=== PATIENT | female | born 1935 | race Caucasian/White ===

== ENCOUNTER → 2017-12-30 | Outpatient (CLI) | payer MEDICARE ==
[2017-12-30 16:45] LABS: Bilirubin, Urine Neg (Neg); Blood, Urine 4+ (Neg); Glucose Qualitative, Urine Neg (Neg); Ketones, Urine Neg (Neg); Leukocyte Esterase, Urine 3+ (Neg); Nitrite, Urine Neg (Neg); Protein, Urine 1+ (Neg); Urobilinogen, Urine NORM (Normal)
[2017-12-30 16:55] LABS: Appearance, Urine Clear (Clear); Color, Urine Yellow (P-Yellow)
[2017-12-30 16:57] LABS: White Blood Cells, Urine 50-100 /hpf (0-5)
[2017-12-30 16:58] LABS: Bacteria Many /hpf; Squamous Epithelial Cells Few /hpf (Few)
== END ==
LOC: LAB SHORT 16:36 → LAB 16:36
PROVIDERS: Nurse Practitioner Family
DX: R82.90 Unspecified abnormal findings in urine (principal)
CPT/HCPCS: 81001; 87077; 87086; 87186

== ENCOUNTER → 2018-11-09 | Outpatient (CLI) | payer MEDICARE ==
[~2018-11-09] MED LIST: ALPR.5 PO; AMLO5 PO; ATOR40TA PO; Amantadine100 M1 PO; ELIQUIS5 MG PO; Ferrous Glucon324 M1 PO; Isosorbide Mono30 MG PO; LISI20 PO; METO50 PO; Pantoprazole So40 MG PO
== END | disposition home or self-care (01) ==
LOC: PLD 08:12 → LAB SHORT 08:12
DX: C44.311 Basal cell carcinoma of skin of nose (principal); C44.319 Basal cell carcinoma of skin of other parts of face
CPT/HCPCS: 88305

== ENCOUNTER → 2018-11-18 | Outpatient (CLI) | payer MEDICARE | END | disposition home or self-care (01) | LOC: LAB SHORT 12:28 → PLD 12:28 | DX: C44.310 Basal cell carcinoma of skin of unspecified parts of face (principal) | CPT/HCPCS: 88305 ==

== ENCOUNTER → 2018-11-25 | Outpatient (CLI) | payer MEDICARE | END | disposition home or self-care (01) | LOC: PLD 08:52 → LAB SHORT 08:52 | DX: C44.319 Basal cell carcinoma of skin of other parts of face (principal) | CPT/HCPCS: 88305 ==

== ENCOUNTER → 2018-12-03 | Outpatient (CLI) | payer MEDICARE | END | disposition home or self-care (01) | LOC: LAB SHORT 14:51 → PLD 14:51 | DX: C44.311 Basal cell carcinoma of skin of nose (principal) | CPT/HCPCS: 88305 ==

== ENCOUNTER 2019-02-18 07:47 | Inpatient (IN) | payer MEDICARE ==
[~2019-02-18] VITALS: Ht 157.5 cm; Wt 83.5 kg
[~2019-02-18 07:47] MED LIST changes: +ALBU90OI6 INH; +Citalopram HBr10 MG PO; +Keflex500 MG PO; +METO25 PO; -METO50 PO; +QUET25 PO
[2019-02-18 08:12] LABS: BASOPHILS ABSOLUTE AUTO 0.03 K/mm3 (0.00-0.23); BASOPHILS PERCENT AUTO 0 % (0-2); EOSINOPHILS ABSOLUTE AUTO 0.04 K/mm3 (0.00-0.68); EOSINOPHILS PERCENT AUTO 1 % (0-6); Hematocrit 31.1 % (33.0-51.0); Hemoglobin 8.9 g/dL (11.5-16.0); IMMATURE GRAN ABSOLUTE AUTO 0.02 K/mm3 (0.00-0.10); IMMATURE GRAN PERCENT AUTO 0 % (0-1); LYMPHOCYTES ABSOLUTE AUTO 2.86 K/mm3 (0.84-5.20); LYMPHOCYTES PERCENT AUTO 38 % (21-46); MONOCYTES ABSOLUTE AUTO 0.43 K/mm3 (0.16-1.47); MONOCYTES PERCENT AUTO 6 % (4-13); Mean Corpuscular HGB Conc 28.6 g/dL (31.5-36.5); Mean Platelet Volume 9.4 fL (9.1-12.4); NEUTROPHILS ABSOLUTE AUTO 4.09 K/mm3 (1.96-9.15); NEUTROPHILS PERCENT AUTO 55 % (41-73); Platelet Count 219 K/mm3 (150-400); RDW Coefficient Variation 16.5 % (11.7-14.2); Red Blood Cell Count 3.56 M/mm3 (3.80-5.20); White Blood Cell Count 7.47 K/mm3 (4.00-11.30)
[2019-02-18 08:14] LABS: Mean Corpuscular Volume 87 fL (80-100)
[2019-02-18 08:25] LABS: Source, Urine Catheter
[2019-02-18 08:33] LABS: International Normalized Ratio 1.47
[2019-02-18 08:34] LABS: Alanine Aminotransfer (ALT/SGP 32 U/L (12-78); Albumin/Globulin Ratio 0.9 (0.8-1.8); Alk Phos 98 U/L (50-136); Anion Gap 16 mmol/L (6-16); Aspartate Aminotrans (AST/SGOT 43 U/L (12-37); Bilirubin, Total 0.6 mg/dL (0.1-1.0); Blood Urea Nitrogen 18 mg/dL (8-24); Bun/Creatinine Ratio 13.8 (12.0-20.0); CO2, Blood 18 mmol/L (21-32); Calcium, Blood 9.6 mg/dL (8.5-10.1); Chloride, Blood 108 mmol/L (98-108); Ethanol (Alcohol), Blood, Med <3 mg/dL; Globulin, Blood 3.3 g/dL (2.2-4.0); Glomerular Filtration Rate 42 (60-); Glucose, Blood 117 mg/dL (70-99); Potassium, Blood 4.6 mmol/L (3.5-5.5); Sodium, Blood 142 mmol/L (136-145); Total Protein, Blood 6.3 g/dL (6.4-8.2)
[2019-02-18 08:38] LABS: Appearance, Urine Hazy (Clear); Bilirubin, Urine Neg (Neg); Blood, Urine 4+ (Neg); Color, Urine Yellow (P-Yellow); Glucose Qualitative, Urine Neg (Neg); Ketones, Urine 1+ (Neg); Leukocyte Esterase, Urine 3+ (Neg); Nitrite, Urine Neg (Neg); Protein, Urine 3+ (Neg); Specific Gravity, Urine 1.015 (1.003-1.022); Urobilinogen, Urine NORM (Normal)
[2019-02-18 08:43] LABS: PO2 Arterial 79.1 mmHg (80-100)
[2019-02-18 08:54] LABS: Troponin I 0.068 ng/mL (0.000-0.040)
[2019-02-18 09:08] LABS: Bacteria Many /hpf; Squamous Epithelial Cells Few /hpf (Few); White Blood Cells, Urine TNTC /hpf (0-5)
[2019-02-18 09:08] LABS: Creatine Kinase MB 5.7 ng/mL (0.0-3.6); Creatine Kinase MB Index 2.2 (0.0-4.0)
[2019-02-18 09:09] LABS: Amorphous Light ({null, 0-Heavy}); Granular Casts 0-2 /lpf ({null, 0})
[2019-02-18] MEDS ORDERED: DONEPEZIL HCL5 M1 PO (12:16)
[2019-02-18] MEDS ORDERED: METO100 PO (12:22)
[2019-02-18] MEDS ORDERED: Aspirin EC81 MG PO (12:29)
--- NOTE | 2019-02-18 12:45 | NUR ---
PATIENT ARRIVED TO ICU ROOM 9 AFTER TELEPHONE REPORT FROM DAE VALERO, ED, AT 1245 VIA STRETCHER, PATIENT MOVED OVER TO BED VIA SLIDER, THE ENTIRE TIME PATIENT WAS MUMBLING INCOHERENT WORDS AND SPEECH, AT TIMES SHE WILL GET BREFLY VERY AGITATED AND THROW BOTH ARMS IN THE AIR, PATIENTS CORE TEMP WAS 94.8 UPON ARRIVAL IN THE ICU, BEAR HUGGER WAS PLACED ON PATIENT AND TEMPERATURE AT THIS TIME IS 98.1, PATIENT IS ON AIRVO NC 43 %, 20L/MIN, WILL BE MOVED TO REGULAR NC ONCE NORMAL TEMPERATURE IS REACHED,PATIENT HAS A FIXED GAZE TO THE UPPER RIGHT, WILL MOVE HEAD, RIGHT PUPIL IS 6 CM AND LEFT PUPIL IS 5 CM, BOTH ARE REACTING SLUGGISH, PATIENT REACTS TO STARTLE REFLEX ONLY WHEN IT COMES DIRECTLY FROM THE FRONT, LUNG SOUNDS ARE DIMINISHED BUT CLEAR, PATIENT IS IN SR/SB, PATIENT IS, BOWEL TONES ARE PRESENT, PATIENT HAS BLAIR CATHER WITH TEMP PROBE IN, DARK YELLOW URINE WITH SEDIMENT DRAINING, PATIENT WAS DIAGNOSED WITH UTI ABOUT 3 DAYS AGO, BRUISES ARE NOTED ON LEFT THIGH, LEFT HIP, LEFT ARM AND ELBOW, ALSO SOME BRUISES ON RIGHT ARM, PATIENT HAS A 206 IN R AC AND A 20 G IN L WRIST, NORMAL SALINE INFUSING VIA R AC PIV, HISTORY AND MED RECONCILIATION WAS OBTAINED FROM FAMILY, SON, [id number], AND , PHONE NUMBERS ON WHITE BOARD, PATIENT IS A DNR PER FAMILY, CALL LIGHT IN REACH, WILL CONTINUE TO MONITOR.
[2019-02-18 15:01] LABS: U Amphetamine Screen Not Detected; U Barbituate Screen Not Detected; U Benzodiazapine Screen DETECTED; U Buprenorphine Screen Not Detected; U Cannabinoids Screen Not Detected; U Cocaine Screen Not Detected; U Methadone Screen Not Detected; U Methamphetamine Screen Not Detected; U Opiates Screen Not Detected; U Oxycodone Screen Not Detected; U Phencyclidine Screen Not Detected; U Propoxyphene Screen Not Detected
--- NOTE | 2019-02-18 15:39 | NUR ---
PATIENT REWARMED TO 99.1, BEAR HUGGER REMOVED, RT CALLED AND AIRVO REPLACED WITH REGULAR NASAL CANNULA ON 3L, WHICH WAS INCREASED TO 4L D/T PATIENT'S DESATURATION INTO UPPER 80'S, PATIENT CONTINUES TO MUMBLE INCOHERENT WORDS AND BECOMES INCREASINGLY AGITATED WHEN APPROACHED, UNABLE TO FOLLOW COMMANDS, CALL LIGHT IN REACH, WILL CONTINUE TO MONITOR.
--- NOTE | 2019-02-18 16:34 | NUR ---
PATIENT VOMITED ABOUT 50CC OF COFFEE GROUND EMESIS, SUCTIONED, DR. HERRERA NOTIFIED, ALSO NOTIFIED ABOUT TEMP NOW 100.9, NEW ORDERS RECEIVED, DR. GOMEZ WAS CALLED FOR GI CONSULT, H&H ORDERED, LAB IN TO DRAW, CALL LIGHT IN REACH, WILL CONTINUE TO MONITOR.
--- NOTE | 2019-02-18 16:59 | NUR ---
PATIENT RECEIVED PROTONIX 40 MG IV ORDERED, AND WAS GIVEN ACETAMINOPHEN SUPPOSITORY 650 MG PER RECTUM, PATIENT TOLERATED POORLY, CALL LIGHT IN REACH, WILL CONTINUE TO MONITOR.
[2019-02-18 17:03] LABS: Hematocrit 26.3 % (33.0-51.0); Hemoglobin 8.1 g/dL (11.5-16.0)
--- NOTE | 2019-02-18 17:34 | NUR ---
SHIFT SUMMARY NOTE: PATIENT REMAINS CONFUSED, CONTINUES TO MUMBLE INCOHERENT WORDS, DOES NOT FOLLOW COMMANDS, BRIEF JERKY MOVEMENTS OBSERVED, PATIENT HAS A CONTINUOUS TREMOR D/T PARKINSONS DISEASE, FAMILY ALSO STATED THAT PATIENT WAS RECENTLY DIAGNOSED WITH EARLY STAGES OF DEMENTIA, PATIENT WAS ALSO DIAGNOSED WITH A UTI ABOUT 3 DAYS AGO, VSS AFTER PATIENT WAS REWARMED, TEMPERATURE ELEVATED AND RECEIVED TYLENOL SUPPOSITORY, PATIENT VOMITED SMALL AMOUNT OF COFFEE GROUND EMESIS, SUCTIONED, ORAL CARE DONE, DR. GOMEZ NOTIFIED FOR GI CONSULT, CALL LIGHT IN REACH, WILL CONTINUE TO MONITOR. MULTIPLE BRUISES OVER LEFT SIDE OF BODY AND SOME BRUISES ON RIGHT SIDE, PICTURES IN CHART, PATIENT TOOK A FALL SOMETIME DURING LAST NIGHT AND FOUND DOWN LYING ON GRAVEL PATH OUTSIDE IN HER NIGHT GOWN, FOR DETAILS SEE SHIFT ASSESSMENT DOCUMENTATION AND NURSES NOTES, CALL LIGHT IN REACH, WILL CONTINUE TO MONITOR AND GIVE REPORT TO ONCOMING SUPERVISOR BOATBUILDERS WOOD.
--- NOTE | 2019-02-18 21:10 | NUR ---
ASSUMED CARE OF PT, REPORT RCV'D FROM DAE ENGLISH. PT ALERT, BUT SEEMS CONFUSED AND FRIGHTENED WITH AN INCREASED STARTLE REFLEX. PT MUMBLES INCOHERENTLY AND FAILS TO FOLLOW BASIC COMMANDS. PT TREMULOUS, WITH HX PARKINSON. PT BRUISED D/T FALL AND USE OF XARELTO, PHOTOS IN CHART. PT DOES NOT GRIMACE WITH PALPATION OF ABDOMEN. DR GOMEZ IN TO SEE PT, EGD SCHEDULED FOR 02/19/19 IN EVENING. PT ON 4L HFNC WITH NS RUNNING @125 ML/HR. CURRENT TEMP 100.4. BLAIR TEMP IN PLACE DRAINING DARK MARIA A URINE. SEE FULL SHIFT ASSESSMENT.
--- NOTE | 2019-02-18 23:36 | NUR ---
PT HAS CONTINUED TO HAVE LARGE AMOUNT OF COFFEE GROUND EMESIS INCREASING HER RISK OF ASPIRATION. NG TUBE PLACED AND HOOKED TO SUCTION. 350 ML BLACK COFFEE GROUND EMESIS OUT ON INSERTION.
[2019-02-19 02:10] LABS: BASOPHILS ABSOLUTE AUTO 0.02 K/mm3 (0.00-0.23); BASOPHILS PERCENT AUTO 0 % (0-2); EOSINOPHILS ABSOLUTE AUTO 0.01 K/mm3 (0.00-0.68); EOSINOPHILS PERCENT AUTO 0 % (0-6); Hematocrit 26.9 % (33.0-51.0); Hemoglobin 8.2 g/dL (11.5-16.0); IMMATURE GRAN ABSOLUTE AUTO 0.03 K/mm3 (0.00-0.10); IMMATURE GRAN PERCENT AUTO 0 % (0-1); LYMPHOCYTES ABSOLUTE AUTO 1.45 K/mm3 (0.84-5.20); LYMPHOCYTES PERCENT AUTO 17 % (21-46); MONOCYTES ABSOLUTE AUTO 0.91 K/mm3 (0.16-1.47); MONOCYTES PERCENT AUTO 11 % (4-13); Mean Corpuscular HGB 24.8 pg (26.0-34.0); Mean Corpuscular HGB Conc 30.5 g/dL (31.5-36.5); Mean Platelet Volume 9.6 fL (9.1-12.4); NEUTROPHILS ABSOLUTE AUTO 6.13 K/mm3 (1.96-9.15); NEUTROPHILS PERCENT AUTO 72 % (41-73); Platelet Count 202 K/mm3 (150-400); RDW Coefficient Variation 16.6 % (11.7-14.2); RDW Standard Deviation 47.6 fL (35.1-46.3); Red Blood Cell Count 3.31 M/mm3 (3.80-5.20); White Blood Cell Count 8.55 K/mm3 (4.00-11.30)
[2019-02-19 02:11] LABS: Bilirubin, Total 0.7 mg/dL (0.1-1.0); Bun/Creatinine Ratio 17.9 (12.0-20.0); Calcium, Blood 8.7 mg/dL (8.5-10.1); Creatinine, Blood 1.12 mg/dL (0.40-1.00); Globulin, Blood 3.1 g/dL (2.2-4.0); Potassium, Blood 4.4 mmol/L (3.5-5.5); Total Protein, Blood 6.1 g/dL (6.4-8.2)
[2019-02-19 02:13] LABS: Mean Corpuscular Volume 81 fL (80-100)
--- NOTE | 2019-02-19 06:17 | NUR ---
SHIFT SUMMARY PT HAS SHOWN IMPROVEMENTS OVER THIS SHIFT. PT IS ABLE TO FOLLOW BASIC COMMANDS (I.E. OPENING MOUTH, SQUEEZE HANDS) PT IS STILL MUMBLING WITH ATTEMPTS TO FORM WORDS. PT WAS ABLE TO SAY "MAY" WHEN RESPONDING TO WHAT MONTH IT IS. PT FEBRILE WITH TMAX 100.4, BP HAS BEEN LABILE, HR 80-90'S. NGT HOOKED TO LIS. 475 ML COFFEE GROUND EMESIS OUT OVER SHIFT. URINE YELLOW WITH SEDIMENT, 350 ML OUT PUT. BLOOD GLUCOSE 69 WITH AM LABS, ORDER PLACED FOR Q6 CBG TO MONITOR WHILE PT IS NPO. PT TO HAVE EGD THIS EVENING PER DR GOMEZ. SEE PREVIOUS SHIFT NOTES AND ASSESSMENTS. WILL REPORT TO DAYSHIFT NURSE.
--- NOTE | 2019-02-19 06:42 | NUR ---
PT'S DAUGHTER IN LAW CALLED AND WAS UPDATED ON PT'S PROGRESS
--- NOTE | 2019-02-19 07:13 | NUR ---
ASSUMED CARE: RECEIVED REPORT FROM NOC RN. PT LYING IN BED EYES OPEN ATTEMPTING TO SPEEK, BUT UNABLE TO UNDERSTAND. NO ACUTE DISTRESS NOTED AT THIS TIME. WILL CONTINUE TO MONITOR AND ASSESS FURTHER.
--- NOTE | 2019-02-19 08:29 | NUR ---
02/19/19 0829 Jessi Sigala History, Chart, Medications and Allergies reviewed before start of procedure. Patient confirms NPO status and agrees with scheduled surgery. PATIENT DETERMINED TO BE ASA APPROPRIATE FOR PROPOFOL SEDATION PRIOR TO START OF PROCEDURE BY DR. GOMEZ. 3-LEAD EKG REVIEWED WITH PHYSICIAN PRIOR TO START OF PROCEDURE. MONITOR INTACT WITH CONTINUOUS PULSE OXIMETRY AND INTERMITTENT BP.
--- NOTE | 2019-02-19 09:46 | NUR ---
FAMILY AT BEDSIDE: UPDATED FAMILY ON PT CURRENTLY CONDITION & PENDING PROCEDURE. RECEIVED COPY OF ADVANCED DIRECTIVE FROM DAUGHTER IN LAW, PLACED IN CHART. PT REMAINS TO APPEAR VERY AGITATED AND POSSIBLY FEARFUL.
--- NOTE | 2019-02-19 10:29 | NUR ---
HALUCINATIONS & INCREASED ANXIETY: WHILE ATTEMPTING TO DRAW BLOOD PT WOULD BECOME EXTREAMLY FEARFUL AT TIMES AND START MUTTERING, SHAKING AND HAS A FEARFULL APEARANCE ON HER FACE. THE DAUGHTER IN LAW AT BEDSIDE APPEARS TO BE ALBE TO UNDERSTAND THE PT A BIT BETTER AND STATES SHE IS SEEING THINGS IN THE ROOM. DR HERRERA CALLED AND NOTIFIED OF PT INCREASE IN ANXIETY AND HALUCINATION, NO NEW ORDERS AT THIS TIME STATES HE WILL BE IN TO SEE PT SOON.
[2019-02-19 10:34] LABS: Hematocrit 26.2 % (33.0-51.0); Hemoglobin 7.8 g/dL (11.5-16.0)
--- NOTE | 2019-02-19 13:07 | NUR ---
DECREASED HGB & BLOOD PRESSURE: CALLED DR HERRERA TO NOTIFY OF HGB OF 7.8 AND DECREASED BLOOD PRESSURE OF 90/60. RECEIVED NEW ORDERS AND TOLD TO CALL DR GOMEZ TO UPDATE. CALL TO DR GOMEZ, CURRENTLY IN PROCEDURES MADE AWARE OF THE SITUATION.
--- NOTE | 2019-02-19 13:44 | NUR ---
BLOOD TRANS: TURNED RATE UP TO 175ML/HR AT THIS TIME.
--- NOTE | 2019-02-19 16:30 | NUR ---
LOW URINE OUTPUT: DR TON HERRERA NOTIFIED OF URINE OUTPUT TOTAL OF 250 NOTED IN BLAIR BAG. ORDERS FOR LABS IN THE MORNING.
--- NOTE | 2019-02-19 17:30 | NUR ---
EGD PROCEDURE: 1630 TEAM YULIANA TO SET UP THE ROOM. DR JASON BRIDGES, TIME OUT IS PERFORMED IN THE ROOM AND SCOPE IS DONE. SCOPE WAS NOTED TO BE OUT AT APPROX 1722. PT RECEIVED 80MG OF PROPOFOL T/O THE PROCEDURE. THIS RN NOTIFIED FAMILY PROCEDURE COMPLETE, AND PT IS RESTING AT THIS TIME. DR WILL CALL TO UPDATE FURTHER.
--- NOTE | 2019-02-19 18:07 | NUR ---
SHIFT SUMMARY: T/O THE DAY PT HAS BEEN VERY AGITATED AND ANXIOUS. IT APPEARD THOUGH PT WAS SEEING THINGS IN THE ROOM THAT WERE NOT SEEN BY OTHERS IN THE ROOM. PT FACIAL EXPRESSION APPEARED TO BE FEARFUL AND PT WOULD BEGIN TO SHAKE UNCONTROLABLY RAISING ARMS AND ATTEMPTING TO SIT UP WHILE MUMBLING INCOHERENTLY. PT WAS PROVIDED WITH ATIVAN PER ORDERS WITH NO CHANGE. PT GIVEN DILAUDID FOR PAIN PER ORDERS, BUT DID NOT APPEAR TO HELP WITH PAIN OR AGITATION. BLOOD SUGARS WERE LOW SO FLUIDS WERE CHANGED TO D5NS AND INCREASED RATE TO 150ML D/T LOW BLOOD PRESSURES. EGD WAS DONE THIS SHIFT, PT APPEARED TO HANDLE WELL NOTED BY HER COOPERATION AND VITAL SIGNS REMAINING STABLE. TEMP APPEARS TO HAVE ELAVATED FURTHER, TYLENOL SUPPOSITORY GIVEN. LOW URINE OUTPUT NOTED THIS SHIFT, MADE AWARE. BED IN LOW POSSITION AND BED ALARM ON.
--- NOTE | 2019-02-19 20:00 | NUR ---
ASSUMED CARE OF PT AT 1900. REPORT RECEIVED PARTIALLY AT BEDSIDE. PT PRESENTS IN BED. DOES HAVE EASY STARTLE WITH APPROACH. PT DOES MAKE EYE CONTACT. SPEECH VERY DIFFICULT TO UNDERSTAND. PT TOLERATED TURN IN BED. AFTERWARDS, WAS ABLE TO UNDERSTAND PT THANKING RN FOR REPOSITIONING. WILL REVIEW CHART AND PLAN OF CARE FOR THIS PT.
--- NOTE | 2019-02-19 22:36 | NUR ---
PMC CARE DONE FOR PT. MUCH REASSURANCE GIVEN AND CARE TAKEN. PROFESSOR OF VIOLIN SCAR DOES CATHETER CARE AND HAS DONE ORAL CARE. PT BECOMES VERY RESISTANT AND PROFESSOR OF VIOLIN NEEDS RN TO ASSIST TO KEEP PT FROM SCRATCHING OR SLAPPING HER. PT CALMS QUICKLY AFTER CARE PERFORMED. REMAINS WITH VERY DIFFICULT TO UNDERSTAND SPEECH PATTERN. USE OF BED ALARM FOR PT SAFETY. PROVIDED PERSONAL FAN FOR LOW GRADE FEVER. WILL CONTINUE TO MONITOR PT, AND REASSURE HER MUCH NEEDED. IS A MOUTH BREATHER. HAVE BREANA NASAL CANNULA TO HER MOUTH AND HAVE BEEN ABLE TO TITRATE DOWN O2 TO 4 L/M. WILL CONTINUE TO MONITOR AND REEVALUATE IF ABLE TO TITRATE LOWER.
[2019-02-20 03:41] LABS: BASOPHILS ABSOLUTE AUTO 0.02 K/mm3 (0.00-0.23); BASOPHILS PERCENT AUTO 0 % (0-2); EOSINOPHILS ABSOLUTE AUTO 0.01 K/mm3 (0.00-0.68); EOSINOPHILS PERCENT AUTO 0 % (0-6); Hemoglobin 9.1 g/dL (11.5-16.0); IMMATURE GRAN ABSOLUTE AUTO 0.02 K/mm3 (0.00-0.10); IMMATURE GRAN PERCENT AUTO 0 % (0-1); LYMPHOCYTES ABSOLUTE AUTO 1.29 K/mm3 (0.84-5.20); LYMPHOCYTES PERCENT AUTO 17 % (21-46); MONOCYTES ABSOLUTE AUTO 0.94 K/mm3 (0.16-1.47); MONOCYTES PERCENT AUTO 13 % (4-13); Mean Corpuscular HGB 26.6 pg (26.0-34.0); Mean Corpuscular HGB Conc 31.4 g/dL (31.5-36.5); Mean Corpuscular Volume 85 fL (80-100); Mean Platelet Volume 9.1 fL (9.1-12.4); NEUTROPHILS ABSOLUTE AUTO 5.12 K/mm3 (1.96-9.15); NEUTROPHILS PERCENT AUTO 69 % (41-73); NRBC ABSOLUTE 0.04 K/mm3 (0.00-0.02); NRBC Auto 0.5 /100 WBC (0.0-0.2); Platelet Count 166 K/mm3 (150-400); RDW Standard Deviation 51.1 fL (35.1-46.3); Red Blood Cell Count 3.42 M/mm3 (3.80-5.20)
[2019-02-20 03:58] LABS: Albumin, Blood 3.1 g/dL (3.4-5.0); Bilirubin, Total 0.8 mg/dL (0.1-1.0); Calcium, Blood 8.2 mg/dL (8.5-10.1); Creatinine, Blood 0.95 mg/dL (0.40-1.00); Globulin, Blood 3.1 g/dL (2.2-4.0); Potassium, Blood 3.9 mmol/L (3.5-5.5); Total Protein, Blood 6.2 g/dL (6.4-8.2)
--- NOTE | 2019-02-20 06:00 | NUR ---
PT HAS BEEN ABLE TO SLEEP SOME THIS NIGHT. WHEN OBSERVED, PT STARTLES FROM SLEEP, AND IT TAKES A BIT FOR HER TO FALL ASLEEP. SHE THEN REPEATS THE STARTLE AND AWAKENS AGAIN. PT HAS BEEN CALM WITH MOST OF CARE THIS NIGHT. NEEDS SOOTHING REASSURANCE. CONTINUES ON 3 LITERS OXYGEN PER NASAL CANNULA. MAINTAINS SATURATIONS GREATER THAN 90 PERCENT. WILL CONTINUE TO MONITOR PT, AND WILL REPORT OFF TO ONCOMING RN.
--- NOTE | 2019-02-20 08:00 | NUR ---
ASSUMED CARE: RECEIVED REPORT FROM NOC RN. PT APPEARS TO BE SLEEPING UPON ENTERING THE ROOM NOTED BY EYES CLOSED, EVEN RISE AND FALL OF CHEST NOTED. VITALS APPEAR TO BE STABLE AND NO DISTRESS NOTED AT THIS TIME. WILL CONTINUE TO MONITOR AND ASSESS FURTHER.
--- NOTE | 2019-02-20 10:30 | NUR ---
MENTATION: PT APPEARS TO BE ABLE TO ANSWER YES OR NO QUESTION AND IS ABLE TO GET OUT ONE WORD AT A TIME, BUT IS VERY DIFFICULT TO UNDERSTAND STILL. ANXIETY APPEARS TO BE MUCH LESS THAN THE PREVIOUS DAY. REORIENTED PT TO HOSPITAL AND APPEARS TO HAVE UNDERSTANDING. FAMILY IN TO SEE PT AND IS TALKING WITH THE [id number] WHO APPEARS TO BE ABLE TO UNDERSTAND THE PT MUCH BETTER THAN ANYONE ELSE. SPEECH THERAPY CAME TO EVALUATE PT AND OK'D PT FOR PUREED FOOD AND THIN LIQUIDS. PT ABLE TO TAKE EXTENDED RELEASE MEDS WHOLE AND DISCUSSED WITH ST ABOUT CHANGING ALL ORAL MED ADMINISTRATION WHOLE IN APPLESAUCE. WILL CONTINUE TO MONITOR.
--- NOTE | 2019-02-20 13:20 | NUR ---
RECEIVED REPORT FROM KELSEA GRADER TENDER, AND WILL ASSUME CARE OF PT WHEN TRANSFERRED TO PCU ROOM 3.
--- NOTE | 2019-02-20 13:23 | NUR ---
TRANSFER TO PCU 3: REPORT GIVEN TO MARKETING REPORTING ANALYST. MARKETING REPORTING ANALYST TO ICU ROOM TO ASSIST IN TRANSFER.
--- NOTE | 2019-02-20 13:30 | NUR ---
RECEIVED PT FROM ICU 9 INTO PCU 3.
--- NOTE | 2019-02-20 15:54 | NUR ---
NURSING SUMMARY ALERT, CONFUSED, GARBLED SPEECH, TREMORS/PARKINSONS, FOLLOWS COMMANDS MOST OF THE TIME. SR - ST WITH FREQUENT PAC'S, BBB, AND ABBERANT BEATS, HR 95 - 117. VSS. LUNGS WITH UPPER AIRWAY EXPIRATORY WHEEZING, C/O SOB, 4L O2 NC, SATS REMAINING 92-96%, RESPIRATORY TREATMENTS. BOWEL SOUNDS HYPOACTIVE, DENIES NAUSEA. DR. GOMEZ CAME TO SEE PT. NEW ORDER FOR PRILOSEC AND DC REGLAN. PT IS NOT ON BLOOD THINNERS DUE TO MICRO BLEEDS PER EGD RESULTS. D5 1/2 NS INFUSING AT 125 ML/HR, DUE TO POOR APPETITE AND BLOOD SUGARS TRENDING LOW. ON PUREE DIET, REQUIRES FEEDING ASSISTANCE, DYSPHAGIA PRECAUTIONS. BLAIR IN PLACE WITH YELLOW URINE A LOT OF DARK SPECS OF SEDIMENT. DR. HERRERA AWARE AND NEW ORDER FOR LASIX IV (GIVEN BY KELSEA, TOOLING MECHANIC) PRIOR TO ARRIVAL IN PCU AND TO CALL DR. HERRERA AT 1700 WITH URINE OUTPUT AMOUNT. LAST BM 02/17, BOWEL CARE. SKIN WITH SCATTERED BRUISING THROUGHOUT BODY, PICTURES IN CHART, REPOSITIONING EVERY TWO HOURS. SCD'S, PT/OT AND SPEECH THERAPY CONSULTED. RAC 20G AND LEFT WRIST IV SITE.
--- NOTE | 2019-02-20 17:01 | NUR ---
REPORT RECEIVED FROM MANOLO PEARL.
--- NOTE | 2019-02-20 18:30 | NUR ---
SHIFT SUMMARY PT ALERT TO SELF, PLACE AND SITUATION. PT DIFFICULT TO UNDERSTAND DUE TO GARBLED SPEECH. DYSPHAGIA PRECAUTIONS IN PLACE. VS STABLE. 02 SATS REMAIN ABOVE 90% ON 5L NC. BLAIR PATENT AND DRAINING DARK YELLOW URINE. PT TOLERATING PUREE DIET. PT BEING REPOSITIONED Q2H. WILL CONTINUE TO MONITOR AND REPORT TO ONCOMING RN.
--- NOTE | 2019-02-20 23:14 | NUR ---
PT STATES SEEING ANTS ALL OVER HER DRINK. ASKS NURSE TO GET ANOTHER WATER CUP. THIS NURSE BRINGS THIS PT ANOTHER ICE WATER. PT STATES THAT SHE WON'T DRINK IT BECAUSE THERE ARE ANTS INSIDE OF IT. THIS NURSE ATTEMPTED TO REORIENT PT TO SITUATION AND SHOW HER THAT THERE WERE NO ANTS. PT REPLIES "MY ALWAYS SAYS I AM HALLUCOINATING WHEN I SEE THE ANTS BUT IO SEE THEM". PT ASKS TO KEEP LIGHT ON IN ROOM. LIGHTS LEFT ON. WATER LEFT AT BEDSIDE TABLE IN REACH OF PT. CALL LIGHT IN PATIENT'S HAND.
[2019-02-21 04:18] LABS: BASOPHILS ABSOLUTE AUTO 0.03 K/mm3 (0.00-0.23); BASOPHILS PERCENT AUTO 0 % (0-2); EOSINOPHILS ABSOLUTE AUTO 0.12 K/mm3 (0.00-0.68); EOSINOPHILS PERCENT AUTO 1 % (0-6); Hemoglobin 9.1 g/dL (11.5-16.0); IMMATURE GRAN ABSOLUTE AUTO 0.04 K/mm3 (0.00-0.10); IMMATURE GRAN PERCENT AUTO 1 % (0-1); LYMPHOCYTES ABSOLUTE AUTO 1.12 K/mm3 (0.84-5.20); LYMPHOCYTES PERCENT AUTO 13 % (21-46); MONOCYTES ABSOLUTE AUTO 0.89 K/mm3 (0.16-1.47); MONOCYTES PERCENT AUTO 10 % (4-13); Mean Corpuscular HGB 26.2 pg (26.0-34.0); Mean Corpuscular HGB Conc 30.3 g/dL (31.5-36.5); Mean Corpuscular Volume 87 fL (80-100); Mean Platelet Volume 9.6 fL (9.1-12.4); NEUTROPHILS ABSOLUTE AUTO 6.65 K/mm3 (1.96-9.15); NEUTROPHILS PERCENT AUTO 75 % (41-73); NRBC ABSOLUTE 0.03 K/mm3 (0.00-0.02); NRBC Auto 0.3 /100 WBC (0.0-0.2); Platelet Count 163 K/mm3 (150-400); RDW Coefficient Variation 17.6 % (11.7-14.2); RDW Standard Deviation 53.7 fL (35.1-46.3); Red Blood Cell Count 3.47 M/mm3 (3.80-5.20); White Blood Cell Count 8.85 K/mm3 (4.00-11.30)
[2019-02-21 04:33] LABS: International Normalized Ratio 1.27; Prothrombin Time Results 13.2 Sec (9.7-11.5)
[2019-02-21 04:38] LABS: Alanine Aminotransfer (ALT/SGP 209 U/L (12-78); Albumin, Blood 2.9 g/dL (3.4-5.0); Albumin/Globulin Ratio 0.9 (0.8-1.8); Alk Phos 86 U/L (50-136); Anion Gap 8 mmol/L (6-16); Aspartate Aminotrans (AST/SGOT 216 U/L (12-37); Bilirubin, Total 0.6 mg/dL (0.1-1.0); Blood Urea Nitrogen 17 mg/dL (8-24); Bun/Creatinine Ratio 19.7 (12.0-20.0); CO2, Blood 24 mmol/L (21-32); Calcium, Blood 8.4 mg/dL (8.5-10.1); Chloride, Blood 117 mmol/L (98-108); Creatinine, Blood 0.87 mg/dL (0.40-1.00); Globulin, Blood 3.2 g/dL (2.2-4.0); Glomerular Filtration Rate >60 (60-); Glucose, Blood 92 mg/dL (70-99); Potassium, Blood 3.6 mmol/L (3.5-5.5); Sodium, Blood 149 mmol/L (136-145); Total Protein, Blood 6.1 g/dL (6.4-8.2)
--- NOTE | 2019-02-21 04:40 | NUR ---
END OF SHIFT SUMMARY ASSUMED CARE OF PT @1900. PT AXO,. TALKING WITH STAFF APPROPRIATELY. PT STATES OCCASIONAL LIGHT HEADEDNESS WITH AMBULATION BUT THIS HAS RESIDED. NO ACUTE CHANGES EXPERIENCED THIS SHIFT AT THIS TIME. PT HAS APPEARED TO SLEEP FOR MAJORITY OF SHIFT. PT STATES THAT THE PHENERGAN/CODEINE AND CEPACOL LOZENGES GIVEN AT THE BEGINNIG OF SHIFT HAVE BEEN THE MOST IMPACTFUL MEASURES TAKEN TO RELIEVWE HIS CHEST/ABDOMEN PAIN. STATES THAT THE MORPHINE GIVEN EARLIER DURING DAY SHIFT DID NOTHING FOR HIS PAIN AND JUST "KNOCKED HIM OUT". THIS WILL BE PASSED ON TO ONCOMING NURSE FOR PAIN MANAGEMENT. CALL LIGHT HAS BEE WITHIN REACH. BED IN LOWEST POSITION. WILL CONTINUE TO MONITOR PT UNTIL SHIFT CHANGE.
--- NOTE | 2019-02-21 04:46 | NUR ---
ND OF SHIFT SUMMARY. ASSUMED CARE OF PT @1900. NO ACUTE CHANGES THIS SHIFT. VSS. HGB HAS REMAINED AT 9.1. CBG HAS REMAINED STABLE. BLAIR HAS SHOWN LITTLE VOLUME OUTPUT. PT HAS BEEN UP TO BS AND WAS SUCCESFUL WITH 2 SMALL HARD BM'S. PT FOUND TO CURRENTLY BE IN AFIB WITH OCCASIONAL P WAVES. RATE HAS REMAINED STABLE STAYING AROUND THE 110'S. PT HAS REMAINED ON 5L NC. PT HAS HAD PERIODS OF ICREASED CONFUSION, TALKING TO HERSELF, HAVING DELUSIONS OF ANTS/COCKROACHES CRAWLING AROUND, AND PARANOID THAT THIS NURSE HAS TAINTED HER DRINK WITH THE ANTS. AT OTHER TIMES, PT IS VERY COOPERATIVE AND MAKES NO COMMENTS REGARDING THESE DELUSIONS. "EGG CRATE" PADDING PLACED UNDERNEATH BED SHEET R/T MULTIPLE RED SPOTS/BRUISES FOUND POSTERIORLY AND SCATTERED T/O PT'S SKIN. MEPILEX ON COCCYX AND MID BACK REDDENED AREAS THAT APPEAR TO BE AT HIGHER RISK FOR BREAKDOWN. PT HAS BEEN REPOSITIONED MULTIPLE TIMES THIS SHIFT. CALL LIGHT WITHIN REACH, PT HAS USED IT A FEW TIMES THIS SHIFT. BED IN LOWEST POSITION WITH BED ALARM SET. WILL CONTINUE TO MONITOR PT UNTIL SHIFT CHANGE.
--- NOTE | 2019-02-21 17:49 | NUR ---
SHIFT SUMMARY PT ALERT TO SELF, SITUATION AND FAMILY. PT HAVING MOMENTS OF LUCIDITY AND MOMENTS OF CONFUSION WITH PARANOIA AND HALLUCINATIONS. VS HAVE BEEN STABLE. HR IS 110-120'S AFIB. BLAIR CATHETER PATENT AND DRAINING. PT DENIES ANY PAIN. FAMILY IN TO SEE PT. PT ABLE TO WORK WITH PHYSICAL THERAPY TODAY AND TRANSFER TO CHAIR. WILL CONTINUE TO MONITOR CLOSELY AND REPORT TO ONCOMING RN. CALL LIGHT IN REACH.
--- NOTE | 2019-02-22 00:52 | NUR ---
PT'S REFUSAL OF CARE PT HAS REFUSED SCD'S THIS SHIFT, HER PARKSINSONS MEDICATION, AND CURRENTLY 0000 BP WITH VITALS. THESE REFUSALS EACH FOLLOW EXTENSIVE EDUCATION FROM THIS NURSE. PT INITALLY WOULDN'T TAKE ANY OF HER 2100 MEDICATIONS. PT EVENTUALLY OBLIGED TO TAKE THEM BUT THEN PROCEEDED TO SPIT HER SYMMETREL. PT HAS BEEN EXTREMELY PARANOID OF STAFF THIS SHIFT AND HAS BEEN SOMEWHAT COMBATIVE WITH SPEECH AND MOVEMENTS.
--- NOTE | 2019-02-22 05:48 | NUR ---
END OF SHIFT SUMMARY ASSUMED CARE OF PT @1900. PT PRESENTS CONFUSED. DAUGHTER HAD JUST LEFT. PT HALLUCINATING, SEEING ANTS AND RELATIVES THAT ARE NOT IN THE ROOM. SEE NOTE REGARDING REFUALS. PT DID TAKE MELATONIN AND WAS ABLE TO GET A FEW HOURS ASLEEP. THIS AM, PT APPEARS MORE ALERT THAN BEGINNING OF SHIFT, MUCH MORE COOPERATIVE AND LESS PARNOID. VSS T/O SHIFT. PT CONTIONUES TO HAVE VERY LITTLE URINE OUTPUT INTO BLAIR. PT ALSO HAS HAD VERY LITTLE ORAL INTAKE, A FEW SIPS OF WATER T/O NIGHT. PT REPOSITIONED MULTIPLE TIMES THIS SHIFT. WILL CONTINUE TO MONITOR PT UNTIL SHIFT CHANGE.
[2019-02-22 05:57] LABS: Albumin, Blood 2.8 g/dL (3.4-5.0); Albumin/Globulin Ratio 0.8 (0.8-1.8); Bilirubin, Total 0.9 mg/dL (0.1-1.0); Bun/Creatinine Ratio 19.2 (12.0-20.0); Calcium, Blood 8.6 mg/dL (8.5-10.1); Creatinine, Blood 1.25 mg/dL (0.40-1.00); Globulin, Blood 3.3 g/dL (2.2-4.0); Potassium, Blood 4.1 mmol/L (3.5-5.5); Total Protein, Blood 6.1 g/dL (6.4-8.2)
--- NOTE | 2019-02-22 09:00 | NUR ---
DR MONCADA HERE TO SEE PT. DISCUSSED PT'S STATUS. BED ALARM IN PLACE.
--- NOTE | 2019-02-22 10:50 | NUR ---
PT RECENTLY HAD BATH WITH ASSIST FROM FEMALE CIRCUS TRAINER'S. PT MED WHILE SITTING ON SIDE OF BED WITHOUT DIFFICULTY. THERAPY IN WORKING WITH PT. FAMILY PRESENT.
--- NOTE | 2019-02-22 13:33 | NUR ---
PT DRINKING WATER MUCH BETTER TODAY. PT ALMOST DRANK FULL WATER BOTTLE AND SOME OF ENSURE. PT FAMILY/FRIENDS IN ROOM.
--- NOTE | 2019-02-22 19:25 | NUR ---
SHIFT SUMMARY PT CONT TO BE CONFUSED AT TIMES. PT BEEN ASSISTED WITH ADL'S PRN. PT BEEN REPOSITIONED MULT TIMES TODAY. PT HAS FOAM PAD ON BED. PT WORKED WITH THERAPY EARLIER THIS AM. PT HAS HAD MULT FAMILY/FRIENDS IN/OUT OF ROOM. ALARM IN PLACE. PT DRINKING FLUIDS TODAY WITH ENCOURAGEMENT.
[2019-02-23 04:09] LABS: BASOPHILS ABSOLUTE AUTO 0.02 K/mm3 (0.00-0.23); BASOPHILS PERCENT AUTO 0 % (0-2); EOSINOPHILS ABSOLUTE AUTO 0.07 K/mm3 (0.00-0.68); EOSINOPHILS PERCENT AUTO 1 % (0-6); Hematocrit 29.3 % (33.0-51.0); Hemoglobin 8.8 g/dL (11.5-16.0); IMMATURE GRAN ABSOLUTE AUTO 0.05 K/mm3 (0.00-0.10); IMMATURE GRAN PERCENT AUTO 1 % (0-1); LYMPHOCYTES ABSOLUTE AUTO 1.46 K/mm3 (0.84-5.20); LYMPHOCYTES PERCENT AUTO 18 % (21-46); MONOCYTES PERCENT AUTO 14 % (4-13); Mean Corpuscular HGB 25.8 pg (26.0-34.0); Mean Corpuscular Volume 86 fL (80-100); Mean Platelet Volume 10.6 fL (9.1-12.4); NEUTROPHILS ABSOLUTE AUTO 5.29 K/mm3 (1.96-9.15); NEUTROPHILS PERCENT AUTO 66 % (41-73); NRBC ABSOLUTE 0.15 K/mm3 (0.00-0.02); NRBC Auto 1.9 /100 WBC (0.0-0.2); Platelet Count 122 K/mm3 (150-400); RDW Coefficient Variation 19.1 % (11.7-14.2); RDW Standard Deviation 56.9 fL (35.1-46.3); Red Blood Cell Count 3.41 M/mm3 (3.80-5.20); White Blood Cell Count 7.99 K/mm3 (4.00-11.30)
[2019-02-23 04:47] LABS: Albumin, Blood 2.7 g/dL (3.4-5.0); Albumin/Globulin Ratio 0.8 (0.8-1.8); Bilirubin, Total 0.7 mg/dL (0.1-1.0); Bun/Creatinine Ratio 21.1 (12.0-20.0); Calcium, Blood 8.8 mg/dL (8.5-10.1); Creatinine, Blood 1.8 mg/dL (0.40-1.00); Globulin, Blood 3.2 g/dL (2.2-4.0); Potassium, Blood 4.3 mmol/L (3.5-5.5); Total Protein, Blood 5.9 g/dL (6.4-8.2)
--- NOTE | 2019-02-23 07:35 | NUR ---
AM ASSESSMENT: Pt laying in bed. LS with exp wheezing in upper lobes. BT positive. Pulses palp. HR irregular, tele shows controlled afib. Pt denies pain. Oriented to self, place, family, surroundings and situation. 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 Pt does not seem to be having some tremors that are chronic. VSS, blood pressure slightly low. UO very low. Physician aware and new orders were obtained by david RN. Will continue to monitor.
--- NOTE | 2019-02-23 07:44 | NUR ---
PHYSICIAN NOTIFIED DR MONCADA CALLED REGARDING PATIENTS I/O'S. TOLD PATIENT HAS BEEN DRINKING VERY LITTLE LIQUIDS AND HAS CONTINUED WITH LOW OUTPUTS FROM BLAIR. THIS NOC SHIFT PT HAD A 100ML URINE OUTPUT. PREV DAY SHIFT HAD ABOUT 400MLS. STATES HE HAS BEEN AWARE OF THE PATIENTS "DRYNESS". STATES IS PLANNING TO TALK TO THE FAMILY REGARDING HOSPICE BUT DOES PLACE AN ORDER FOR FLUIDS. 500 NS BOLUS FOLLOWED BY CONTINUOUS D5 1/2 NS 20MEQ @100MLS/HR UNTIL HE ARRIVES TO MAKE FURTHER CHANGES.
--- NOTE | 2019-02-23 08:03 | NUR ---
END OF SHIFT SUMMARY PT APPEARED TO HAVE SLEP FOR MAJORITY OF SHIFT POST MELATONIN. NO ACUE CHANGES NOTED. VSS. MAIN COCERN IS PT'S I&O. SEE NOTE REGARDING CALL TO DR MONCADA. TO SEE PT THIS AM AND DISCUSS NEXT ROUTE OF CARE WITH PT'S FAMILY. PT HAS BEEN TURNED MULTIPLE TIMES THIS SHIFT. HAS SIPPED SMALL AMOUNT OF WATER. PT APPEARS LESS CONFUSED THIS SHIFT. REPORT GIVEN TO ONCOMING NURSE.
--- NOTE | 2019-02-23 18:36 | NUR ---
shift summary: Pt resting in bed at this time. Has had very poor UO this shift. Physician aware and new orders were obtained. PT BP was also low this afternoon and physician aware. Pt has been oriented and very cooperative throughout the shift. She was able to get up to chair with OT then back to bed with PT. Pt is a max assist. PT/OT will continue to work with Pt. No other changes this shift. Will report to night RN>
[2019-02-24 05:29] LABS: BASOPHILS ABSOLUTE AUTO 0.02 K/mm3 (0.00-0.23); BASOPHILS PERCENT AUTO 0 % (0-2); EOSINOPHILS ABSOLUTE AUTO 0.06 K/mm3 (0.00-0.68); EOSINOPHILS PERCENT AUTO 1 % (0-6); Hemoglobin 9.5 g/dL (11.5-16.0); IMMATURE GRAN ABSOLUTE AUTO 0.05 K/mm3 (0.00-0.10); IMMATURE GRAN PERCENT AUTO 1 % (0-1); LYMPHOCYTES ABSOLUTE AUTO 1.07 K/mm3 (0.84-5.20); LYMPHOCYTES PERCENT AUTO 13 % (21-46); MONOCYTES ABSOLUTE AUTO 1.04 K/mm3 (0.16-1.47); MONOCYTES PERCENT AUTO 12 % (4-13); Mean Corpuscular HGB 26.7 pg (26.0-34.0); Mean Corpuscular HGB Conc 30.6 g/dL (31.5-36.5); Mean Corpuscular Volume 87 fL (80-100); NEUTROPHILS ABSOLUTE AUTO 6.25 K/mm3 (1.96-9.15); NEUTROPHILS PERCENT AUTO 74 % (41-73); NRBC ABSOLUTE 0.14 K/mm3 (0.00-0.02); NRBC Auto 1.6 /100 WBC (0.0-0.2); Platelet Count 96 K/mm3 (150-400); RDW Coefficient Variation 19.6 % (11.7-14.2); RDW Standard Deviation 60.9 fL (35.1-46.3); Red Blood Cell Count 3.56 M/mm3 (3.80-5.20); White Blood Cell Count 8.49 K/mm3 (4.00-11.30)
[2019-02-24 05:45] LABS: Albumin, Blood 2.7 g/dL (3.4-5.0); Albumin/Globulin Ratio 0.8 (0.8-1.8); Bilirubin, Total 0.8 mg/dL (0.1-1.0); Bun/Creatinine Ratio 28.6 (12.0-20.0); Calcium, Blood 8.7 mg/dL (8.5-10.1); Creatinine, Blood 1.68 mg/dL (0.40-1.00); Globulin, Blood 3.4 g/dL (2.2-4.0); Potassium, Blood 4.6 mmol/L (3.5-5.5); Total Protein, Blood 6.1 g/dL (6.4-8.2)
--- NOTE | 2019-02-24 06:35 | NUR ---
a+o, no dilusions or confusion noted during shift, call light in reach, iv infusing, 2.5 via nc, took medication one pill at a time with OJ, will continue to monitor and treat until sbar report povided to day shift.
--- NOTE | 2019-02-24 09:10 | NUR ---
AM ASSESSMENT: Pt resting in bed. VSS. Dr. Zapata in room visiting Pt. Pt is A/O at this time. No hallucinations or dilusions. Answers questions appropriatly. LS with wheezing, HR irregular. Tele shows A-Fib in the 80's. BT positive. Piña cath draining yellow urine that is dark with some sediment in it. Pt and Dr. Zapata discussing treatment plans. Possible plan for discharge with hospice. Pt seems open to this idea. Call light in reach. Will continue to monitor.
[2019-02-24 12:19] LABS: Antinuclear Antibody Screen Negative (Negative)
--- NOTE | 2019-02-24 19:47 | NUR ---
SHIFT SUMMARY: Pt resting in bed. Pt has been A/O throughout the shift. VSS. Pt has had some wheezing. BIox has reamined >90% on 3L nc. HR has been in afib in the 80's. UO has imporved and Pt drained >300ml from her beckman cath this shift. Urine is still very dark with sediment. +2 Edema has remained in BLE. Pt was able to get up with 2 person max assist to BSC and have a BM this shift. No other changes. Pt and her family are leaning toward pt being discharged to hospice care. Pt seems slightly down, but at peace with this decision. Report was given to night rn. No other changes.
--- NOTE | 2019-02-25 00:55 | NUR ---
Assumed care of pt at approx 1905. VSS. Pt alert and oriented, slow to respond and difficult to understand with some grumbled speech. Pt answer questions appropriately. Pt breathing shallow and slightly tachypneic at 21 with complaint "I cannot breathe". This RN at bedside frequently with Pt to ensure o2 saturation and pt safety. O2 Saturation remain stable at 95% on 3L NC, suction provided PRN per pt request. Pt states she no longer feels SOB and is currently resting in bed. Q2 turn, tolerates well. Mepilex in place on coccyx. See shift assessment for detailed assessment. Will continue to closely monitor.
[2019-02-25 04:23] LABS: BASOPHILS ABSOLUTE AUTO 0.03 K/mm3 (0.00-0.23); BASOPHILS PERCENT AUTO 0 % (0-2); EOSINOPHILS ABSOLUTE AUTO 0.09 K/mm3 (0.00-0.68); EOSINOPHILS PERCENT AUTO 1 % (0-6); Hematocrit 32.4 % (33.0-51.0); Hemoglobin 9.8 g/dL (11.5-16.0); IMMATURE GRAN PERCENT AUTO 1 % (0-1); LYMPHOCYTES ABSOLUTE AUTO 1.27 K/mm3 (0.84-5.20); LYMPHOCYTES PERCENT AUTO 14 % (21-46); MONOCYTES ABSOLUTE AUTO 1.02 K/mm3 (0.16-1.47); MONOCYTES PERCENT AUTO 11 % (4-13); Mean Corpuscular HGB 25.8 pg (26.0-34.0); Mean Corpuscular HGB Conc 30.2 g/dL (31.5-36.5); Mean Corpuscular Volume 85 fL (80-100); Mean Platelet Volume 11.1 fL (9.1-12.4); NEUTROPHILS ABSOLUTE AUTO 6.66 K/mm3 (1.96-9.15); NEUTROPHILS PERCENT AUTO 73 % (41-73); NRBC ABSOLUTE 0.21 K/mm3 (0.00-0.02); NRBC Auto 2.3 /100 WBC (0.0-0.2); Platelet Count 107 K/mm3 (150-400); RDW Coefficient Variation 19.9 % (11.7-14.2); RDW Standard Deviation 59.6 fL (35.1-46.3); White Blood Cell Count 9.17 K/mm3 (4.00-11.30)
[2019-02-25 04:45] LABS: Albumin, Blood 2.8 g/dL (3.4-5.0); Albumin/Globulin Ratio 0.8 (0.8-1.8); Bilirubin, Total 0.7 mg/dL (0.1-1.0); Calcium, Blood 8.7 mg/dL (8.5-10.1); Creatinine, Blood 1.46 mg/dL (0.40-1.00); Globulin, Blood 3.4 g/dL (2.2-4.0); Potassium, Blood 4.8 mmol/L (3.5-5.5); Total Protein, Blood 6.2 g/dL (6.4-8.2)
--- NOTE | 2019-02-25 05:34 | NUR ---
Shift Summary No acute changes this shift, VSS, no apparent sign of distress, no events on tele. Pt remained alert and oriented this shift, mild confusion after periods of sleep but reoriented within a few seconds. Pt able to make needs known, pt uses call light but not at all times, she sometimes calls out. Call light remains in reach, bed alarm on without any attempts to exit bed unattended this shift. Pt turned Q2. Piña in place and patent. S/L. Will continue to monitor and update as needed
[2019-02-25] MEDS ORDERED: ACET325 PO (14:25)
[2019-02-25] MEDS ORDERED: DOCU100 PO (14:26)
[2019-02-25] MEDS ORDERED: OXYC1L PO (14:29)
[2019-02-25] MEDS ORDERED: Carbidopa-Levo1 EACH PO (14:30)
--- NOTE | 2019-02-25 15:56 | NUR ---
ORDERS FOR DISCHARGE PROVIDED THIS AM. PT TO GO HOME ON HOSPICE THROUGH [facility]. FAMILY AT BEDSIDE. DISCHARGE INSTRUCTIONS PROVIDED TO BOTH FAMILY AND PT. FAMILY HAS ASKED THAT THE CATHETER REMAIN IN FOR PT COMFORT ON DISCHARGE. IV REMOVED AND INTACT. EDUCATION PROVIDED ON NEW MEDICATIONS AND CHANGES IN REGIMEN. PT TAKEN BY TRANSPORT AND FAMILY NOTIFIED.
== END 2019-02-25 15:45 | disposition hospice, home (50) | DRG 871 ==
LOC: ER 07:47 → PCU 10:47 → ICUW 10:47 → PCU 02-20 13:57
PROVIDERS: Emergency Medicine; Family Medicine; Internal Medicine Gastroenterology; ADMIT Internal Medicine
PROC: 0DJ08ZZ Inspection of Upper Intestinal Tract, Via Natural or Artificial Opening Endoscopic (ICD-10-PCS; principal; 2019-02-19 16:00)
DX: A41.9 Sepsis, unspecified organism (principal); J96.01 Acute respiratory failure with hypoxia; G93.41 Metabolic encephalopathy; K25.4 Chronic or unspecified gastric ulcer with hemorrhage; E87.2 Acidosis; N39.0 Urinary tract infection, site not specified; K92.0 Hematemesis; D62 Acute posthemorrhagic anemia; E87.0 Hyperosmolality and hypernatremia; J44.1 Chronic obstructive pulmonary disease with (acute) exacerbation; J98.11 Atelectasis; N17.9 Acute kidney failure, unspecified; E44.0 Moderate protein-calorie malnutrition; R00.1 Bradycardia, unspecified; G31.83 Neurocognitive disorder with Lewy bodies; F02.80 Dementia in other diseases classified elsewhere, unspecified severity, without behavioral disturbance, psychotic disturbance, mood disturbance, and anxiety; T68.XXXA Hypothermia, initial encounter; Z87.891 Personal history of nicotine dependence; Z90.49 Acquired absence of other specified parts of digestive tract; F41.1 Generalized anxiety disorder; I71.4 Abdominal aortic aneurysm, without rupture; I27.20 Pulmonary hypertension, unspecified; I10 Essential (primary) hypertension; I73.9 Peripheral vascular disease, unspecified; Z66 Do not resuscitate; I48.0 Paroxysmal atrial fibrillation; Z79.82 Long term (current) use of aspirin; Z85.038 Personal history of other malignant neoplasm of large intestine; T45.515A Adverse effect of anticoagulants, initial encounter; T39.015A Adverse effect of aspirin, initial encounter; Y92.9 Unspecified place or not applicable; R00.0 Tachycardia, unspecified; R74.0 Nonspecific elevation of levels of transaminase and lactic acid dehydrogenase [LDH]; R34 Anuria and oliguria; R62.7 Adult failure to thrive; Z68.24 Body mass index [BMI] 24.0-24.9, adult; R44.1 Visual hallucinations; T36.1X5A Adverse effect of cephalosporins and other beta-lactam antibiotics, initial encounter; Y92.239 Unspecified place in hospital as the place of occurrence of the external cause
CPT/HCPCS: 36415; 36430; 36600; 51702; 70450; 71045; 72125; 72170; 76705; 80053; 81001; 82550; 82553; 82803; 82947; 83605; 83690; 83880; 84443; 84484; 85014; 85018; 85025; 85610; 85730; 86038; 86850; 86900; 86901; 86923; 87040; 87086; 92526; 92610; 93005; 93010; 94640; 94762; 96361-59; 96365-59; 96375-59; 97110; 97163; 97166; 97530; 97535; 99285-25; C9113; G0480; J0171; J0696; J1170; J1940; J2060; J2405; J2550; J2704; J7030; J7042; J7120; P9016